=== PATIENT | female | born 1970 | race African-American/Black ===

== ENCOUNTER 2016-12-17 05:09 | Emergency (ER) | payer OTHER ==
[2016-12-17 06:00] VITALS: BP 110/58; PULSE 72; TEMP 98.2; BMI 25.1
--- NOTE | 2016-12-17 06:49 | PDOC ---
History of Present Illness - General Chief Complaint: Pain, Acute Stated Complaint: LEFT BACK PAIN Time Seen by Provider: 12/17/16 06:38 History Source: Patient Exam Limitations: No Limitations - History of Present Illness Initial Comments: 12/17/16 06:46 Patient is a 46 year old female with h/o IBS c/o left flank pain x 3 weeks, states pain is intermittent 8/10 when had been responding to rubbing the area and taking tylenol but this am without relief. No history of kidney stones. Deneis vomiting, fever, chills, diarrhea, constipation. pmd : Dr. Simms PMHX: as above PSOCHX: neg etoh, drug, cig FamHx: Noncontributory ALL: NKDA GENERAL/CONSTITUTIONAL: [No fever or chills. No weakness. No weight change.] HEAD, EYES, EARS, NOSE AND THROAT: [No change in vision. No ear pain or discharge. No sore throat.] CARDIOVASCULAR: [No chest pain or shortness of breath.] RESPIRATORY: [No cough, wheezing, or hemoptysis.] GASTROINTESTINAL: (+) nausea, (-) vomiting, diarrhea or constipation. No rectal bleeding, (+) flank pain ] GENITOURINARY: [No dysuria, frequency, or change in urination.] MUSCULOSKELETAL: [No joint or muscle swelling or pain. No neck or back pain.] SKIN AND BREASTS: [No rash or easy bruising.] NEUROLOGIC: [No headache, vertigo, loss of consciousness, or loss of sensation.] PSYCHIATRIC: [No depression or anxiety.] ENDOCRINE: [No increased thirst. No abnormal weight change.] HEMATOLOGIC/LYMPHATIC: [No anemia, easy bleeding, or history of blood clots.] ALLERGIC/IMMUNOLOGIC: [No hives or skin allergy. No latex allergy.] GENERAL: [The patient is awake, alert, and fully oriented, in no acute distress. ] HEAD: [Normal with no signs of trauma.] EYES: [Pupils equal, round and reactive to light, extraocular movements intact, sclera anicteric, conjunctiva clear.] ENT: [Ears normal, nares patent, oropharynx clear without exudates. Moist mucous membranes.] NECK: [Normal range of motion, supple without lymphadenopathy, JVD, or masses.] LUNGS: [Breath sounds equal, clear to auscultation bilaterally. No wheezes, and no crackles.] HEART: [Regular rate and rhythm, normal S1 and S2 without murmur, rub.] ABDOMEN: [Soft, nontender, normoactive bowel sounds. No guarding, no rebound. No masses.] EXTREMITIES: [Normal range of motion, no edema. No clubbing or cyanosis. No cords, erythema, or tenderness.] NEUROLOGICAL: [Cranial nerves II through XII grossly intact. Normal speech, normal gait.] PSYCH: [Normal mood, normal affect.] SKIN: [Warm, Dry, normal turgor, no rashes or lesions noted.] Past History - Past Medical History Allergies/Adverse Reactions: Allergies Allergy/AdvReac Type Severity Reaction Status Date / Time aspirin Allergy Intermediate Rash Verified 12/17/16 05:54 Home Medications: Ambulatory Orders NK [No Known Home Medication] 12/17/16 Anemia: No Asthma: No Cancer: No Cardiac Disorders: No CVA: No COPD: No CHF: No Dementia: No Diabetes: No GI Disorders: Yes (irritable bowel syndrome) Disorders: No HTN: No Hypercholesterolemia: No Liver Disease: No Suicide Attempt (Hx): No Seizures: No Thyroid Disease: Yes (grave's disease) - Immunization History Immunization Up to Date: Yes - Psycho/Social/Smoking Cessation Hx Anxiety: No Suicidal Ideation: No Smoking Status: No Smoking History: Never smoked Have you smoked in the past 12 months: No Number of Cigarettes Smoked Daily: 0 Cigars Per Day: 0 Information on smoking cessation initiated: No Hx Alcohol Use: No Drug/Substance Use Hx: No Substance Use Type: None *Physical Exam - Vital Signs Last Vital Signs Temp Pulse Resp BP Pulse Ox 98.2 F 72 14 110/58 100 12/17/16 05:51 12/17/16 05:51 12/17/16 05:51 12/17/16 05:51 12/17/16 05:51 ED Treatment Course - RADIOLOGY Radiology Studies Ordered: Category Date Time Status ABDOMEN & PELVIS CT W/O CONTR [CT] Stat CT Scan 12/17/16 06:45 Ordered Medical Decision Making - Medical Decision Making 12/17/16 06:48 Patient is a 46 year old female with h/o IBS c/o left flank pain r/o kidney stone UA, CT abd pelvis 12/17/16 07:30 Endorsed to [facility] pending ct scan *DC/Admit/Observation/Transfer Diagnosis at time of Disposition: Acute flank pain
[2016-12-17 08:41] LABS: URINE APPEARANCE CLEAR; URINE BILIRUBIN NEGATIVE (NEGATIVE); URINE COLOR STRAW; URINE GLUCOSE (UA) NEGATIVE (NEGATIVE); URINE KETONE NEGATIVE (NEGATIVE); URINE LEUK ESTERASE NEGATIVE (NEGATIVE); URINE NITRITE NEGATIVE (NEGATIVE); URINE PROTEIN NEGATIVE (NEGATIVE); URINE UROBILINOGEN NEGATIVE E.U./dl (0.2-1.0)
[2016-12-17 09:50] LABS: URINE BLOOD 1+ (NEGATIVE)
[2016-12-17 09:51] LABS: URINE MUCUS RARE; URINE WBC <1 /hpf (3-5)
--- NOTE | 2016-12-17 10:43 | PDOC ---
*Physical Exam - Vital Signs Last Vital Signs Temp Pulse Resp BP Pulse Ox 98.2 F 72 14 110/58 100 12/17/16 05:51 12/17/16 05:51 12/17/16 05:51 12/17/16 05:51 12/17/16 05:51 - Physical Exam Comments: Turnover received from JOSE Adhikari , Continue evaluation for right flank pain, and pending CAT scan to rule out kidney stone 12/18/16 16:37 General Appearance: Yes: Nourished, Appropriately Dressed. No: Apparent Distress HEENT: positive: BENJI, Normal ENT Inspection, TMs Normal, Pharynx Normal Neck: positive: Supple. negative: Tender Respiratory/Chest: positive: Lungs Clear, Normal Breath Sounds Gastrointestinal/Abdominal: positive: Tender, Soft Musculoskeletal: positive: Normal Inspection. 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, Fully Oriented, Alert, Normal Mood/ Affect, Normal Response, Motor Strength 11/23 ED Treatment Course - ADDITIONAL ORDERS Additional order review: Laboratory Results 12/17/16 12/17/16 07:20 07:20 Urine Color Straw Urine Appearance Clear Urine pH 5.0 Urine Protein Negative Urine Glucose (UA) Negative Urine Ketones Negative Urine Blood 1+ H Urine Nitrite Negative Urine Bilirubin Negative Urine Urobilinogen Negative Ur Leukocyte Esterase Negative Urine RBC None Urine WBC <1 Ur Epithelial Cells Rare Urine Mucus Rare Urine HCG, Qual Negative Medical Decision Making - Medical Decision Making 12/17/16 10:39 Return from CAT scan, is resting quietly. Denies any significant pain or any recurrence of pain gets worse then the constant spasmodic mild pain in her left flank. Patient states this operative from the same pain for many months and does not feel it is related to her IBS, has never had dysuria or bleeding hematuria. Has had multiple appointments with [facility] with including cystoscopy for polyp ablation. We'll wait for CAT scan report provided stronger pain medication if in fact renal colic and kidney stones are identified and discharged to follow-up with [facility] for further evaluation of fibroids 12/17/16 10:41 12/17/16 10:41 12/17/16 10:41 *DC/Admit/Observation/Transfer Diagnosis at time of Disposition: Flank pain, acute, Muscle strain - Discharge Dispostion Disposition: HOME Condition at time of disposition: Stable Admit: No - Prescriptions Prescriptions: Oxycodone HCl/Acetaminophen [Percocet 5-325 mg Tablet -] 1 - 2 tab PO Q4H PRN # 10 tablet MDD 4 PRN Reason: Pain - Referrals Referrals: Darren Lopez MD [Primary Care Provider] - - Patient Instructions Printed Discharge Instructions: DI for Muscle Strain Additional Instructions: Rest, drink lots of fluids: Teas, water, soups Hanny akbar, carbonated beverages for the bubbles May try peppermint teas Avoid heavy , spicy or fatty foods until symptoms have resolved Avoid contact with others until fevers and symptoms resolved Lots of handwashing and good hygiene Continue [id number] medications for symptomatic relief Tylenol for fever and pain May use Percocet for severe pain, may take half a tablet as needed Followup with private physician in one to 2 days Return to emergency department for worsened symptoms, fevers, dehydration - Post Discharge Activity Work/School Note: Back to Work
== END 2016-12-17 11:12 | disposition home or self-care (01) ==
LOC: JER 05:09
DX: S39.011A Strain of muscle, fascia and tendon of abdomen, initial encounter (principal); X58.XXXA Exposure to other specified factors, initial encounter; Y93.89 Activity, other specified
CPT/HCPCS: 74176-TC; 81003; 81015; 84703; 99281-25

== ENCOUNTER 2018-04-30 07:31 | Day surgery (SDC) | payer OTHER ==
[2018-04-29 12:42] VITALS: BMI 26.7
[2018-04-30 09:29] VITALS: TEMP 97.8
[2018-04-30 10:31] VITALS: BP 107/62; PULSE 65
--- NOTE | 2018-05-02 14:26 | PATH ---
Surgical Pathology Report Patient Name: JORGE HEARD [facility]. Rec. #: [id number] /Age/Gender: 1970 (Age: 48) / F Account: [id number] Location: U-ENDOSCOPY Taken: 04/30/2018 Received: 04/30/2018 Reported: 05/01/2018 Physicians: Khalida Pagan M.D. Specimen(s) Received BX CECAL POLYPS Clinical History History of adenoma Postoperative diagnosis: Polyps Final Diagnosis CECUM, POLYP, POLYPECTOMY: TUBULAR ADENOMA. Electronically Signed Mariana Vera M.D. Gross Description Received in formalin labeled "cecal polyp," is a 1.0 x 0.9 x 0.2 cm aggregate of esparza soft tissue fragments. The formalin is filtered and the specimen is entirely submitted in one cassette. /04/30/2018 saudi04/30/2018
== END 2018-04-30 10:31 | disposition home or self-care (01) ==
LOC: JASU-ENDO 07:31
PROVIDERS: ATTEND Internal Medicine Gastroenterology
PROC: 0DBH8ZX Excision of Cecum, Via Natural or Artificial Opening Endoscopic, Diagnostic (ICD-10-PCS; principal; 2018-04-30 08:30)
DX: Z12.11 Encounter for screening for malignant neoplasm of colon (principal); K63.5 Polyp of colon; K57.30 Diverticulosis of large intestine without perforation or abscess without bleeding
CPT/HCPCS: 36415; 84703; 88305-TC

== ENCOUNTER 2019-02-01 18:04 | Emergency (ER) | payer OTHER ==
[2019-02-01 18:25] VITALS: BP 102/53; PULSE 69; TEMP 98.6; BMI 27.4
--- NOTE | 2019-02-01 19:19 | PDOC ---
History of Present Illness - General Chief Complaint: Chest Pain Stated Complaint: CHEST PAIN Time Seen by Provider: 02/01/19 18:30 History Source: Patient Exam Limitations: No Limitations - History of Present Illness Initial Comments: 02/01/19 19:12 49yo never smoker woman with PMH graves disease, IBS, eczema, presenting with 5 episodes of non-exertional, intermittent, non-radiating, dull left chest pain, unrelieved by massage, tums, or super B complex, self resolving within 15 seconds without tightness, SOB, arm pain numbness or tingling, diaphoresis. First episode at 7AM, most recent episode just before 6PM. No chest pain at the current time. Denies fevers, chills, nausea, vomiting, recent travel, recent illness, heavy lifting, difficulty breathing, cough, Hx of blood clots, hx of malignancy, recent immobilization or surgery. Stress test done February 10, 2016 with EF 61%, normal LV motion, normal valves. Followed by Dr. Markham for cardiology. Of note, pt is concerned over her symptoms because a cousin from AMI at age 51 on December 21, 2018. PMH: as above PSH: fibroid removal All: Aspirin Meds: per chart SHx: denies smoking, ETOH, ilicits. 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 [employer] Past History - Travel Traveled outside of the country in the last 30 days: No Close contact w/someone who was outside of country & ill: No - Past Medical History Allergies/Adverse Reactions: Allergies Allergy/AdvReac Type Severity Reaction Status Date / Time aspirin Allergy Intermediate Rash Verified 02/01/19 18:25 Home Medications: Ambulatory Orders Acetaminophen [Tylenol] 325 mg PO PRN PRN 04/29/18 Biotin 1 mg PO DAILY 04/29/18 Ergocalciferol (Vitamin D2) [Vitamin D2] 50,000 unit PO DAILY 04/29/18 Lactase [Lactaid] 3,000 unit PO PRN PRN 04/29/18 Mag Carb/Aluminum Hydrox/Algin [Gaviscon Liquid] 15 - 30 ml PO Q6H PRN 04/29/18 Nasonex 1 puff PO PRN PRN 04/29/18 Anemia: No Asthma: No Cancer: No Cardiac Disorders: No CVA: No COPD: No CHF: No Dementia: No Diabetes: No GI Disorders: Yes (NERD,DIVERTICULOSIS,HEPATIC FLEXURE SERRATED ADENOMA) Disorders: No HTN: No Hypercholesterolemia: No Liver Disease: No Seizures: No Thyroid Disease: Yes (HYPERTHYROIDISM-GRAVES DISEASE) - Immunization History Immunization Up to Date: Yes - Suicide/Smoking/Psychosocial Hx Smoking Status: No Smoking History: Never smoked Have you smoked in the past 12 months: No Number of Cigarettes Smoked Daily: 0 Cigars Per Day: 0 Hx Alcohol Use: No Drug/Substance Use Hx: No Substance Use Type: None Hx Substance Use Treatment: No Review of Systems - Review of Systems Able to Perform ROS?: Yes Is the patient limited Faroese proficient: No Constitutional: No: Symptoms Reported, Chills, Fever, Weakness HEENTM: No: Symptoms Reported Respiratory: No: Symptoms reported, Cough, Shortness of Breath Cardiac (ROS): Yes: Symptoms Reported, Chest Pain. No: Irregular Heart Rate, Palpitations, Syncope, Chest Tightness ABD/GI: No: Symptoms Reported, Abdominal Distended, Constipated, Diarrhea, Nausea, Vomiting : No: Symptoms Reported Musculoskeletal: No: Symptoms Reported Integumentary: No: Symptoms Reported Neurological: Yes: Headache (regular tension headache, responds well to tylenol at home). No: Symptoms reported All Other Systems: Reviewed and Negative *Physical Exam - Vital Signs Last Vital Signs Temp Pulse Resp BP Pulse Ox 98.6 F 69 18 102/53 L 100 02/01/19 18:23 02/01/19 18:23 02/01/19 18:23 02/01/19 18:23 02/01/19 18:23 - Physical Exam General Appearance: Yes: Nourished, Appropriately Dressed. No: Apparent Distress HEENT: positive: EOMI, BENJI, Normal Voice, Symmetrical Neck: positive: Trachea midline, Supple. negative: Tender Respiratory/Chest: positive: Lungs Clear, Normal Breath Sounds. negative: Chest Tender, Respiratory Distress, Accessory Muscle Use Cardiovascular: positive: Regular Rhythm, Regular Rate, S1, S2. negative: Edema , Murmur, Bradycardia, Tachycardia, Irregular Gastrointestinal/Abdominal: positive: Soft. negative: Tender, Organomegaly, Pulsatile Mass, Distended, Guarding Musculoskeletal: positive: Normal Inspection Extremity: positive: Normal Capillary Refill, Normal Inspection, Normal Range of Motion. negative: Tender Integumentary: positive: Normal Color, Dry, Warm. 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, Fully Oriented, Alert, Normal Mood/ Affect, Normal Response Heart Score/ECG Review - History History: Slightly suspicious - Electrocardiogram EKG: Normal - Age Age: 45-65 - Risk Factors Risk Factors Heart Score: No Hx Hypercholesterolemia, No Hx Hypertension, No Hx Diabetes, No Smoking History, Yes Positive family hx of cardiac disease Based on the list above the patient has:: 1-2 risk factors - Troponin Troponin: </= normal limit - Score Heart Score - Total: 2 ED Treatment Course - LABORATORY CBC & Chemistry Diagram: 02/01/19 19:24 02/01/19 19:24 - RADIOLOGY Radiology Studies Ordered: Category Date Time Status CHEST X-RAY PORTABLE* [RAD] Stat Radiology 02/01/19 18:47 Ordered Medical Decision Making - Medical Decision Making 02/01/19 19:26 49yo never smoker woman with PMH graves disease, IBS, eczema, presenting with 5 episodes of non-exertional, intermittent, non-radiating, dull left chest pain, unrelieved by massage, tums, or super B complex, self resolving within 15 seconds without tightness, SOB, arm pain numbness or tingling, diaphoresis. HEART Score of 2 (age and FHx). History and physical exam reassuring. Will r/o ACS, PERC rules out PE, CXR for other possible intrathoracic findings (aneurysm , pneumothorax), minimal concern for infectious etiology given vitals and exam. 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 Markham 02/01/19 20:59 - Second troponin is negative - PT asymptomatic, ready to DC *DC/Admit/Observation/Transfer Diagnosis at time of Disposition: Atypical chest pain - Discharge Dispostion Disposition: HOME Condition at time of disposition: Good Decision to Admit order: No - Referrals Referrals: Alexys Markham MD [Staff Physician] - - Patient Instructions Printed Discharge Instructions: DI for Atypical Chest Pain, DI for Chest Pain Additional Instructions: You were seen in the ED for chest pain. Please arrange followup in the next 2-3 days with your eyeglass lens cutter Dr. Markham. Return to the department for any worsening or concerning symptoms. - Post Discharge Activity Forms/Work/School Notes: Back to Work
[2019-02-01 19:35] LABS: BASO % 0.8 % (0-2.0); EOS % 4.6 % (0-4.5); HEMATOCRIT 37.5 % (32.4-45.2); HEMOGLOBIN 12.7 GM/dL (10.7-15.3); LYMPH % 32.4 % (8-40); MCH 30.5 pg (25.7-33.7); MCHC 33.8 g/dl (32.0-36.0); MEAN CELL VOLUME 90.1 fl (80-96); MEAN PLT VOLUME 7.5 fl (7.5-11.1); MONO % 8.9 % (3.8-10.2); NEUT % 53.3 % (42.8-82.8); PLATELET COUNT 358 K/MM3 (134-434); RBC 4.16 M/mm3 (3.60-5.2); RDW 13.2 % (11.6-15.6); WHITE BLOOD COUNT 8.7 K/mm3 (4.0-10.0)
[2019-02-01 20:00] LABS: ALBUMIN 3.6 g/dl (3.4-5.0); ALK PHOS 63 U/L (45-117); ANION GAP 4 MMOL/L (8-16); BILIRUBIN,TOTAL 0.3 mg/dL (0.2-1); CALCIUM 9.7 mg/dL (8.5-10.1); CHLORIDE 105 mmol/L (98-107); CO2 29 mmol/L (21-32); CREATININE 0.8 mg/dL (0.55-1.3); GLUCOSE,RANDOM 93 mg/dL (74-106); POTASSIUM 3.9 mmol/L (3.5-5.1); SGOT/AST 18 U/L (15-37); SGPT/ALT 18 U/L (13-61); SODIUM 138 mmol/L (136-145); TOT PROT 7.8 g/dl (6.4-8.2)
--- NOTE | 2019-02-01 21:31 | PDOC ---
Documentation entered by Wai Vieira SCRIBE, acting as scribe for Tamara Chamorro MD. Tamara Chamorro MD: This documentation has been prepared by the Isha corbett Xhesika, SCRIBE, under my direction and personally reviewed by me in its entirety. I confirm that the documentation accurately reflects all work, treatment, procedures, and medical decision making performed by me. Attending Attestation - Resident Resident Name: William Page - ED Attending Attestation I have performed the following: I have examined & evaluated the patient, The case was reviewed & discussed with the resident, I agree w/resident's findings & plan, Exceptions are as noted - HPI HPI: 02/01/19 19:11 The patient is a 49 year old female with a significant medical history of IBS, eczema, and Graves disease who presents to the ED with chest pain since this morning. The patient describes the chest pain as non-radiating, intermittent, dull pain that resolved after 15 seconds. The patient states her first episode was at 7am and since then has had 4-5 similar episodes throughout the day. The patient states she took Tums and Vitamin B with no relief. Patient notes her 51 year old cousin in December from [place], and she was concerned which prompted her arrival to the ED. The patient denies shortness of breath, chest tightness, arm pain/numbness or tingling, headache and dizziness. Denies fever, chills, nausea, vomiting, diarrhea and constipation. Denies dysuria, frequency, urgency and hematuria. Allergies: Aspirin PCP: Dr. Lopez - Physicial Exam PE: 02/01/19 21:07 GENERAL: Awake, alert, and fully oriented, in no acute distress HEAD: No signs of trauma EYES: PERRLA, EOMI, sclera anicteric, conjunctiva clear ENT: Auricles normal inspection, hearing grossly normal, nares patent, oropharynx clear without exudates. Moist mucosa NECK: Normal ROM, supple, no lymphadenopathy, JVD, or masses LUNGS: Breath sounds equal, clear to auscultation bilaterally. No wheezes, and no crackles HEART: Regular rate and rhythm, normal S1 and S2, no murmurs, rubs or gallops ABDOMEN: Soft, nontender, normoactive bowel sounds. No guarding, no rebound. No masses EXTREMITIES: Normal range of motion, no edema. No clubbing or cyanosis. No cords, erythema, or tenderness NEUROLOGICAL: Cranial nerves II through XII grossly intact. Normal speech SKIN: Warm, Dry, normal turgor, no rashes or lesions noted. - Medical Decision Making 02/01/19 19:14 this pt 's kitchen operator is Dr Markham and in reviewing she had a echo done 2015 that showed normal LV function and ejection fraction of 61% 02/01/19 19:20 EKG is normal sinus rhythm at 63 bpm, with no signs of any ST elevations or depressions, normal QTC. Patient is pain free and without any intervention. She reports having 4 episodes of left-sided chest pain that was done and lasted about 15 seconds Her kitchen operator is Dr. Markham Her master pilot is Dr. Hamilton 02/01/19 21:29 she has 2 negative cardiac enzymes,is asymptomatic and is d/c home to followup with her kitchen operator imp atypical chest pain
--- NOTE | 2019-02-03 14:44 | EKG ---
Test Reason : Blood Pressure : / mmHG Vent. Rate : 063 BPM Atrial Rate : 063 BPM P-R Int : 194 ms QRS Dur : 092 ms QT Int : 422 ms P-R-T Axes : 054 062 027 degrees QTc Int : 431 ms NORMAL SINUS RHYTHM NORMAL ECG WHEN COMPARED WITH ECG OF 16-JAN-2016 07:54, NO SIGNIFICANT CHANGE WAS FOUND Confirmed by Jay Montano MD ([id number]) on 02/03/2019 2:44:20 PM Referred By: Confirmed By:Jay Montano MD
== END 2019-02-01 21:19 | disposition home or self-care (01) ==
LOC: JER 18:04
DX: R07.9 Chest pain, unspecified (principal); E05.00 Thyrotoxicosis with diffuse goiter without thyrotoxic crisis or storm; Z87.19 Personal history of other diseases of the digestive system
CPT/HCPCS: 36415; 71045-TC-FY; 80053; 82550; 82553; 84484; 84703; 85025; 93005; 93010; 99283-25

== ENCOUNTER 2020-06-18 09:14 | Emergency (ER) | payer OTHER ==
[2020-06-18 09:18] VITALS: BP 113/72; PULSE 86; TEMP 99; BMI 25.1
[2020-06-18] MEDS ORDERED: ACETAMINOPHEN 325 MG TABLET (FP) PO ONE (09:35)
[2020-06-18] MEDS ORDERED: ACETAMINOPHEN 500 MG TABLET (FP) ONE (09:41)
== END 2020-06-18 09:58 | disposition home or self-care (01) ==
LOC: FER 09:14
DX: R07.9 Chest pain, unspecified (principal)
CPT/HCPCS: 93005; 99283-25

== ENCOUNTER 2022-07-27 01:21 | Emergency (ER) | payer OTHER ==
[2022-07-27 01:30] VITALS: BP 129/61; PULSE 118; RESP 20; TEMP 102.8; BMI 31.0
== END 2022-07-27 02:08 | disposition home or self-care (01) ==
LOC: FER 01:21
DX: B34.9 Viral infection, unspecified (principal)
CPT/HCPCS: 0241U-QW; 99283-25

== ENCOUNTER → 2022-11-16 | Day surgery (SDC) | payer OTHER | END | disposition home or self-care (01) | LOC: JRADIR 09:32 | PROVIDERS: ATTEND Internal Medicine Endocrinology, Diabetes & Metabolism | PROC: 0G9H3ZX Drainage of Right Thyroid Gland Lobe, Percutaneous Approach, Diagnostic (ICD-10-PCS; principal; 2022-11-16) | DX: E04.1 Nontoxic single thyroid nodule (principal) | CPT/HCPCS: 10005; 76942; 88173; 88305-TC ==

== ENCOUNTER 2022-12-29 16:17 | Emergency (ER) | payer OTHER ==
[2022-12-29 16:47] VITALS: BP 151/90; PULSE 90; RESP 18; TEMP 98.4; BMI 30.1
[2022-12-29] MEDS ORDERED: MECLIZINE HCL 25 MG TABLET (FP) PO ONE (17:02)
[2022-12-29] MEDS ORDERED: MECLIZINE HCL 25 MG TABLET (FP) ONE (17:05)
== END 2022-12-29 17:29 | disposition home or self-care (01) ==
LOC: FER 16:17
DX: R42 Dizziness and giddiness (principal)
CPT/HCPCS: 93005; 99283-25

== ENCOUNTER 2023-02-22 13:48 | Emergency (ER) | payer OTHER ==
[2023-02-22 13:57] VITALS: BP 110/65; PULSE 78; RESP 16; TEMP 98.1; BMI 30.5
[2023-02-22] MEDS ORDERED: ACETAMINOPHEN 325 MG TABLET (FP) PO ONE (14:49)
[2023-02-22] MEDS ORDERED: KETOROLAC TROMETHAMINE 30 MG/1 ML VIAL IM ONE (14:49)
[2023-02-22] MEDS ORDERED: ACETAMINOPHEN 500 MG TABLET (FP) ONE (14:58)
[2023-02-22] MEDS ORDERED: KETOROLAC TROMETHAMINE 30 MG/1 ML VIAL ONE (14:58)
== END 2023-02-22 15:52 | disposition home or self-care (01) ==
LOC: FER 13:48
PROC: 3E0233Z Introduction of Anti-inflammatory into Muscle, Percutaneous Approach (ICD-10-PCS; principal; 2023-02-22)
DX: G43.909 Migraine, unspecified, not intractable, without status migrainosus (principal); R20.0 Anesthesia of skin
CPT/HCPCS: 99284-25

== ENCOUNTER 2023-03-12 02:30 | Emergency (ER) | payer OTHER ==
[2023-03-12 02:49] VITALS: BP 126/67; PULSE 78; RESP 16; TEMP 97.8; BMI 30.9
== END 2023-03-12 02:52 | disposition home or self-care (01) ==
LOC: FER 02:30
DX: F41.9 Anxiety disorder, unspecified (principal)
CPT/HCPCS: 99283-25

== ENCOUNTER 2023-05-08 04:59 | Day surgery (SDC) | payer OTHER ==
[2023-05-07 11:52] VITALS: BMI 30.4
[2023-05-08 07:26] VITALS: RESP 18
[2023-05-08] MEDS ORDERED: SIMETHICONE 40 MG/0.6 ML BOTTLE ONE (07:50)
[2023-05-08 08:34] VITALS: TEMP 98.2
[2023-05-08 09:19] VITALS: BP 104/81; PULSE 73
== END 2023-05-08 09:55 | disposition home or self-care (01) ==
LOC: JASU-ENDO 04:59
PROVIDERS: ATTEND Internal Medicine Gastroenterology
PROC: 0DJD8ZZ Inspection of Lower Intestinal Tract, Via Natural or Artificial Opening Endoscopic (ICD-10-PCS; principal; 2023-05-08 08:00)
DX: Z12.11 Encounter for screening for malignant neoplasm of colon (principal); K57.30 Diverticulosis of large intestine without perforation or abscess without bleeding; K64.8 Other hemorrhoids; Z86.010 Personal history of colon polyps
CPT/HCPCS: 81025

== ENCOUNTER 2023-07-20 17:52 | Emergency (ER) | payer OTHER ==
[2023-07-20 18:03] VITALS: BP 123/70; PULSE 80; RESP 16; TEMP 98.4; BMI 31.9
== END 2023-07-20 19:05 | disposition home or self-care (01) ==
LOC: FER 17:52
DX: S30.1XXA Contusion of abdominal wall, initial encounter (principal); V19.9XXA Pedal cyclist (driver) (passenger) injured in unspecified traffic accident, initial encounter
CPT/HCPCS: 99282-25

== ENCOUNTER 2024-05-30 04:49 | Emergency (ER) | payer OTHER ==
[2024-05-30 04:59] VITALS: BP 119/62; PULSE 75; RESP 18; TEMP 98.2; BMI 31.9
[2024-05-30] MEDS ORDERED: predniSONE 20 MG TABLET (UD) ONE (05:04)
[2024-05-30] MEDS ORDERED: diphenhydrAMINE HCL 25 MG CAPSULE (FP) PO ONE (05:05)
[2024-05-30] MEDS: predniSONE 20 MG TABLET (UD) PO ONE (05:06)
[2024-05-30] MEDS: diphenhydrAMINE HCL 50 MG CAPSULE PO ONE (05:06)
== END 2024-05-30 05:16 | disposition home or self-care (01) ==
LOC: FER 04:49
DX: R21 Rash and other nonspecific skin eruption (principal); T49.2X5A Adverse effect of local astringents and local detergents, initial encounter
CPT/HCPCS: 99283-25